=== PATIENT | female | born 1970 | race Caucasian/White ===

== ENCOUNTER 2017-06-05 13:42 | Emergency (ER) | payer SELFPAY, OTHER | END 2017-06-05 18:57 | disposition left against medical advice (07) | LOC: FTE 18:57 | DX: Z53.21 Procedure and treatment not carried out due to patient leaving prior to being seen by health care provider (principal) ==

== ENCOUNTER 2017-06-07 22:22 | Emergency (ER) | payer SELFPAY, OTHER | END 2017-06-08 01:56 | disposition left against medical advice (07) | LOC: FTE 22:22 | DX: Z53.21 Procedure and treatment not carried out due to patient leaving prior to being seen by health care provider (principal) ==